=== PATIENT | female | born 1965 | race African-American/Black ===

== ENCOUNTER 2017-04-28 10:24 | Inpatient (IN) | payer MEDICARE, MEDICAID ==
[~2017-04-28] VITALS: Ht 156.2 cm; Wt 62.2 kg
[2017-04-28] MEDS ORDERED: SUCCINYLCHOLINE CHLORIDE 200MG/10ML VIAL IV ONE (10:30)
[2017-04-28] MEDS ORDERED: ETOMIDATE 2MG/ML 10ML VIAL IV ONE (10:30)
[2017-04-28] MEDS ORDERED: IPRATROPIUM BROMIDE (0.02%) 0.5MG/2.5ML NEB HHN STA (10:42)
[2017-04-28] MEDS ORDERED: METHYLPREDNISOLONE SOD SUCC 125 MG/2 ML VIAL IV STA (10:42)
[2017-04-28] MEDS: ALBUTEROL (0.083%) 2.5MG/3ML NEB HHN SCH ×3 (11:08→11:55)
[2017-04-28 11:20] LABS: HEMATOCRIT. 39.5 % (36.0-48.0); HEMOGLOBIN. 13.8 g/dL (12.0-16.0); MEAN CORPUSCULAR HEMOGLOBIN 33.5 pg (28.0-32.0); MEAN CORPUSCULAR VOLUME 96.2 fL (81.0-99.0); MEAN PLATELET VOLUME 8.1 fl (7.4-10.4); PLATELET 198 x1000/uL (130-400); RED BLOOD CELL COUNT 4.11 mill/uL (4.2-5.4); RED CELL DISTRIBUTION WIDTH 18.9 % (11.6-14.6)
[2017-04-28 11:27] LABS: INR 1.3; PROTHROMBIN TIME 13.2 sec (9.4-11.6)
[2017-04-28 11:35] LABS: CARBON DIOXIDE 23 mEq/L (21-32); CHLORIDE 97 mEq/L (98-107); TROPONIN I < 0.02 ng/mL (0.00-0.04)
[2017-04-28] MEDS ORDERED: KCL 10MEQ/50ML PREMIX 50 ML IV ONE ×2 (11:45→13:45)
[2017-04-28] MEDS ORDERED: POTASSIUM CHLORIDE 20MEQ/PACKET PO ONE (11:45)
[2017-04-28 11:50] LABS: PLATELET ESTIMATE NORMAL
[2017-04-28] MEDS ORDERED: MAGNESIUM 2 G PREMIX 50 ML IV ONE (12:00)
[2017-04-28 12:41] LABS: BG BASE EXCESS -3.6 mmol/L (-2.0-2.0); BG CARBOXYHEMOGLOBIN 0.9 % (0.5-1.5); BG DEOXYHEMOGLOBIN 0.2 % (0.0-5.0); BG FRACTION INSPIRED OXYGEN 100; BG HCO3 ACT 24.2 mmol/L (22.0-26.0); BG METHEMOGLOBIN 0.4 % (0.0-1.5); BG OXYGEN SATURATION 99.8 % (92.0-98.5); BG OXYHEMOGLOBIN 98.5 % (94.0-97.0); BG PCO2 54.6 mmHg (35.0-45.0); BG PH 7.264 (7.350-7.450); BG PO2 270.6 mmHg (75.0-100.0); BG SAMPLE SITE RIGHT RADIAL; BG TOTAL HEMOGLOBIN 14.3 g/dL (12.0-18.0); BG VENT MODE MASK - NRB
[2017-04-28] MEDS ORDERED: LORAZEPAM 2MG/ML CPJ IV ONE (12:45)
[2017-04-28] MEDS ORDERED: ONDANSETRON HCL 4MG/2ML VIAL IV PRN (13:30)
[2017-04-28] MEDS ORDERED: HYDROCODONE/ACETAMINOPHEN 5/325MG TABLET PO PRN (13:30)
[2017-04-28] MEDS ORDERED: ACETAMINOPHEN 325MG TABLET PO PRN (13:30)
[2017-04-28] MEDS ORDERED: DIPHENHYDRAMINE 50MG/ML VIAL IV PRN (13:30)
[2017-04-28] MEDS ORDERED: IPRATROPIUM/ALBUTEROL 0.5-3(2.5)MG/3ML NEB INH PRN (13:30)
[2017-04-28] MEDS ORDERED: IPRATROPIUM/ALBUTEROL 0.5-3(2.5)MG/3ML NEB INH SCH (13:30)
[2017-04-28] MEDS ORDERED: PROPOFOL 10MG/ML 100ML 100 ML IV ONE (15:03)
[2017-04-28] MEDS ORDERED: SODIUM CHLORIDE 0.9% 1000ML BAG (SEPSIS BOLUS) IV ONE (17:30)
[2017-04-28 17:34] LABS: BG CARBOXYHEMOGLOBIN 0.6 % (0.5-1.5); BG DEOXYHEMOGLOBIN 0.4 % (0.0-5.0); BG FRACTION INSPIRED OXYGEN 60; BG METHEMOGLOBIN 0.4 % (0.0-1.5); BG OXYGEN SATURATION 99.6 % (92.0-98.5); BG OXYHEMOGLOBIN 98.6 % (94.0-97.0); BG PCO2 40.4 mmHg (35.0-45.0); BG PH 7.374 (7.350-7.450); BG PO2 234.6 mmHg (75.0-100.0); BG SAMPLE SITE RIGHT RADIAL; BG TIDAL VOLUME(mL) 500 mL; BG TOTAL HEMOGLOBIN 14.5 g/dL (12.0-18.0); BG VENT MODE VENT - A/C; BG VENT RATE 14 set
[2017-04-28 19:06] LABS: CHLORIDE 99 mEq/L (98-107)
[2017-04-28 19:08] LABS: CARBON DIOXIDE 22 mEq/L (21-32)
[2017-04-28] MEDS: PROPOFOL 10MG/ML 100ML 100 ML IV SCH (21:03)
[2017-04-28 23:45] VITALS: BP 153/91
[2017-04-29] VITALS (52 sets, daily range): BP systolic 124–158; BP diastolic 63–103
[2017-04-29] MEDS ORDERED: PROPOFOL 10MG/ML 100ML 100 ML IV PRN (00:20)
[2017-04-29] MEDS ORDERED: PANTOPRAZOLE SODIUM 40 MG/VIAL IV SCH ×2 (00:20→11:45)
[2017-04-29] MEDS ORDERED: CEFTRIAXONE 1 G PREMIX 50 ML IV SCH ×2 (01:00→21:00)
[2017-04-29] MEDS: METHYLPREDNISOLONE SOD SUCC 40 MG/ML VIAL IV SCH ×4 (01:04→21:02)
[2017-04-29] MEDS: PROPOFOL 10MG/ML 100ML 100 ML IV SCH ×6 (01:19→21:05)
[2017-04-29 01:46] LABS: BG BASE EXCESS -0.9 mmol/L (-2.0-2.0); BG CARBOXYHEMOGLOBIN 0.5 % (0.5-1.5); BG DEOXYHEMOGLOBIN 2.5 % (0.0-5.0); BG FRACTION INSPIRED OXYGEN 40; BG HCO3 ACT 23.2 mmol/L (22.0-26.0); BG METHEMOGLOBIN 0.3 % (0.0-1.5); BG OXYGEN SATURATION 97.5 % (92.0-98.5); BG OXYHEMOGLOBIN 96.7 % (94.0-97.0); BG PCO2 36.7 mmHg (35.0-45.0); BG PH 7.418 (7.350-7.450); BG PO2 92.7 mmHg (75.0-100.0); BG SAMPLE SITE RIGHT RADIAL; BG TIDAL VOLUME(mL) 500 mL; BG TOTAL HEMOGLOBIN 13.1 g/dL (12.0-18.0); BG VENT MODE VENT - A/C; BG VENT RATE 14 set
[2017-04-29] MEDS ORDERED: AZITHROMYCIN 500 MG in DEXT 5% WATER 250 ML IV SCH ×2 (02:00→21:00)
[2017-04-29] MEDS: IPRATROPIUM/ALBUTEROL 0.5-3(2.5)MG/3ML NEB INH SCH ×5 (04:26→20:09)
[2017-04-29 07:16] LABS: HEMATOCRIT. 37.2 % (36.0-48.0); HEMOGLOBIN. 12.3 g/dL (12.0-16.0); MEAN CORPUSCULAR HEMOGLOBIN 32.7 pg (28.0-32.0); MEAN CORPUSCULAR VOLUME 98.5 fL (81.0-99.0); MEAN PLATELET VOLUME 8.4 fl (7.4-10.4); PLATELET 240 x1000/uL (130-400); RED BLOOD CELL COUNT 3.77 mill/uL (4.2-5.4); RED CELL DISTRIBUTION WIDTH 19.4 % (11.6-14.6)
[2017-04-29] MEDS: PANTOPRAZOLE SODIUM 40 MG/VIAL IV SCH (08:03)
[2017-04-29 08:04] LABS: CARBON DIOXIDE 23 mEq/L (21-32); CHLORIDE 105 mEq/L (98-107); HDL CHOLESTEROL 16 mg/dL (40-59); LDL CHOLESTEROL 74 mg/dL (5-100)
[2017-04-29] MEDS: ENOXAPARIN 40MG/0.4ML SYR SUBCUT SCH (08:04)
[2017-04-29] MEDS ORDERED: EPINEPHRINE 0.1MG/ML (1:10,000) 10ML SYR ONE (10:07)
[2017-04-29] MEDS ORDERED: SODIUM CHLORIDE 0.9% 10ML VIAL ONE (10:07)
[2017-04-29 10:37] LABS: PLATELET ESTIMATE NORMAL
[2017-04-29 10:39] LABS: BG BASE EXCESS 0.3 mmol/L (-2.0-2.0); BG CARBOXYHEMOGLOBIN 1.6 % (0.5-1.5); BG DEOXYHEMOGLOBIN 1.8 % (0.0-5.0); BG FRACTION INSPIRED OXYGEN 100; BG HCO3 ACT 25.2 mmol/L (22.0-26.0); BG METHEMOGLOBIN 0.2 % (0.0-1.5); BG OXYGEN SATURATION 98.2 % (92.0-98.5); BG OXYHEMOGLOBIN 96.4 % (94.0-97.0); BG PCO2 41.7 mmHg (35.0-45.0); BG PH 7.399 (7.350-7.450); BG PO2 116.3 mmHg (75.0-100.0); BG SAMPLE SITE RIGHT RADIAL; BG TIDAL VOLUME(mL) 500 mL; BG TOTAL HEMOGLOBIN 10.8 g/dL (12.0-18.0); BG VENT MODE VENT - A/C; BG VENT RATE 18 set
[2017-04-29] MEDS ORDERED: POTASSIUM CHLORIDE INJ 40 MEQ in DEXT 5% WATER 250 ML IV ONE (11:15)
[2017-04-29] MEDS: BUDESONIDE 0.5MG/2ML NEB HHN SCH ×2 (11:50→20:09)
[2017-04-29 12:40] LABS: CLARITY URINE CLEAR (CLEAR); COLOR URINE YELLOW (YELLOW); KETONES URINE 2+ (NEGATIVE); LEUKOCYTE ESTERASE URINE NEGATIVE (NEGATIVE); NITRITE URINE NEGATIVE (NEGATIVE); OCCULT BLOOD URINE 1+ (NEGATIVE); PROTEIN URINE TRACE (NEGATIVE); SPECIFIC GRAVITY URINE 1.013 (1.005-1.030)
[2017-04-29] MEDS ORDERED: DOCU-138 PO (12:40)
[2017-04-29] MEDS ORDERED: CLON0.1T PO (12:40)
[2017-04-29] MEDS ORDERED: FLUT16SP15 BOTHNSTRLS (12:40)
[2017-04-29] MEDS ORDERED: AMLO10TA80 PO (12:40)
[2017-04-29] MEDS ORDERED: CHOL100044 GT (12:40)
[2017-04-29] MEDS ORDERED: LORA10CA PO (12:40)
[2017-04-29] MEDS ORDERED: ALBU18HF2 IH (12:40)
[2017-04-29] MEDS ORDERED: CHOL100044 PO (12:40)
[2017-04-29 13:23] LABS: *AMPHETAMINES SCREEN URINE NEGATIVE (NEGATIVE); *BARBITURATES SCREEN URINE NEGATIVE (NEGATIVE); *BENZODIAZEPINES SCREEN URINE NEGATIVE (NEGATIVE); *COCAINE SCREEN URINE NEGATIVE (NEGATIVE); CANNABINOID URINE SCREEN NEGATIVE (NEGATIVE); METHADONE URINE SCREEN NEGATIVE (NEGATIVE); OPIATES URINE SCREEN NEGATIVE (NEGATIVE); PHENCYCLIDINE URINE SCREEN NEGATIVE (NEGATIVE)
[2017-04-29] MEDS ORDERED: POTASSIUM CHLORIDE INJ 40 MEQ in DEXT 5% WATER 250 ML IV NR ×2 (14:00→18:00)
[2017-04-30] VITALS (24 sets, daily range): BP systolic 124–162; BP diastolic 62–91
[2017-04-30] MEDS: IPRATROPIUM/ALBUTEROL 0.5-3(2.5)MG/3ML NEB INH SCH ×6 (00:07→20:39)
[2017-04-30] MEDS: METHYLPREDNISOLONE SOD SUCC 40 MG/ML VIAL IV SCH (05:00)
[2017-04-30 05:48] LABS: HEMATOCRIT. 36.8 % (36.0-48.0); HEMOGLOBIN. 12.2 g/dL (12.0-16.0); MEAN CORPUSCULAR HEMOGLOBIN 32.3 pg (28.0-32.0); MEAN CORPUSCULAR VOLUME 97.5 fL (81.0-99.0); MEAN PLATELET VOLUME 7.9 fl (7.4-10.4); PLATELET 313 x1000/uL (130-400); RED BLOOD CELL COUNT 3.77 mill/uL (4.2-5.4); RED CELL DISTRIBUTION WIDTH 19.4 % (11.6-14.6)
[2017-04-30 07:36] LABS: CARBON DIOXIDE 24 mEq/L (21-32); CHLORIDE 110 mEq/L (98-107); PHOSPHORUS 2.8 mg/dL (2.5-4.9)
[2017-04-30 08:25] LABS: BG BASE EXCESS 4.3 mmol/L (-2.0-2.0); BG CARBOXYHEMOGLOBIN 0.6 % (0.5-1.5); BG DEOXYHEMOGLOBIN 3.9 % (0.0-5.0); BG FRACTION INSPIRED OXYGEN 30; BG HCO3 ACT 27.9 mmol/L (22.0-26.0); BG METHEMOGLOBIN 0.2 % (0.0-1.5); BG OXYGEN SATURATION 96.1 % (92.0-98.5); BG OXYHEMOGLOBIN 95.3 % (94.0-97.0); BG PCO2 38.1 mmHg (35.0-45.0); BG PH 7.482 (7.350-7.450); BG PO2 75.3 mmHg (75.0-100.0); BG SAMPLE SITE RIGHT RADIAL; BG TIDAL VOLUME(mL) 500 mL; BG TOTAL HEMOGLOBIN 12.9 g/dL (12.0-18.0); BG VENT MODE VENT - A/C; BG VENT RATE 12 set
[2017-04-30] MEDS: PANTOPRAZOLE SODIUM 40 MG/VIAL IV SCH (08:56)
[2017-04-30] MEDS: ENOXAPARIN 40MG/0.4ML SYR SUBCUT SCH (08:56)
[2017-04-30] MEDS ORDERED: PROPOFOL 10MG/ML 100ML 100 ML IV SCH (09:28)
[2017-04-30] MEDS: BUDESONIDE 0.5MG/2ML NEB HHN SCH ×2 (09:29→20:39)
[2017-04-30] MEDS ORDERED: POTASSIUM CHLORIDE 20MEQ/PACKET PO NR (09:30)
[2017-04-30] MEDS ORDERED: VANCOMYCIN 1500MG in DEXTROSE 5% WATER 250ML IV NR (12:00)
[2017-04-30] MEDS: METHYLPREDNISOLONE SOD SUCC 125 MG/2 ML VIAL IV SCH ×2 (14:53→22:00)
[2017-04-30 17:07] LABS: PLATELET ESTIMATE NORMAL
[2017-05-01] VITALS (41 sets, daily range): BP systolic 111–163; BP diastolic 58–110
[2017-05-01] MEDS: IPRATROPIUM/ALBUTEROL 0.5-3(2.5)MG/3ML NEB INH SCH ×6 (00:07→20:19)
[2017-05-01] MEDS: VANCOMYCIN 1 G PREMIX 200 ML IV SCH ×3 (00:47→23:55)
[2017-05-01 06:03] LABS: HEMATOCRIT. 37.6 % (36.0-48.0); HEMOGLOBIN. 12.5 g/dL (12.0-16.0); MEAN CORPUSCULAR HEMOGLOBIN 32.5 pg (28.0-32.0); MEAN CORPUSCULAR VOLUME 97.5 fL (81.0-99.0); MEAN PLATELET VOLUME 7.9 fl (7.4-10.4); PLATELET 319 x1000/uL (130-400); RED BLOOD CELL COUNT 3.85 mill/uL (4.2-5.4); RED CELL DISTRIBUTION WIDTH 19.2 % (11.6-14.6)
[2017-05-01] MEDS: METHYLPREDNISOLONE SOD SUCC 125 MG/2 ML VIAL IV SCH ×3 (06:28→21:00)
[2017-05-01 07:24] LABS: CARBON DIOXIDE 29 mEq/L (21-32); CHLORIDE 107 mEq/L (98-107)
[2017-05-01 07:37] LABS: BG BASE EXCESS 4.4 mmol/L (-2.0-2.0); BG CARBOXYHEMOGLOBIN 0.7 % (0.5-1.5); BG HCO3 ACT 28.2 mmol/L (22.0-26.0); BG METHEMOGLOBIN 0.1 % (0.0-1.5); BG OXYHEMOGLOBIN 96.2 % (94.0-97.0); BG PCO2 39.5 mmHg (35.0-45.0); BG PH 7.472 (7.350-7.450); BG PO2 88.2 mmHg (75.0-100.0); BG SAMPLE SITE RIGHT BRACHIAL; BG TIDAL VOLUME(mL) 500 mL; BG TOTAL HEMOGLOBIN 13.2 g/dL (12.0-18.0); BG VENT MODE VENT - A/C; BG VENT RATE 12 set
[2017-05-01] MEDS: PANTOPRAZOLE SODIUM 40 MG/VIAL IV SCH (08:21)
[2017-05-01] MEDS: ENOXAPARIN 40MG/0.4ML SYR SUBCUT SCH (08:22)
[2017-05-01] MEDS: BUDESONIDE 0.5MG/2ML NEB HHN SCH ×2 (08:35→20:19)
[2017-05-01] MEDS ORDERED: POTASSIUM CHLORIDE 20MEQ/PACKET PO SCH (09:30)
[2017-05-01] MEDS ORDERED: LACTULOSE 20G/30ML UDC PO NR (10:15)
[2017-05-01] MEDS ORDERED: BISACODYL 10MG SUPP PR PRN (10:15)
[2017-05-01] MEDS: LORATADINE 10MG TABLET PO SCH (10:26)
[2017-05-01] MEDS: DOCUSATE SODIUM SUGAR FREE 100MG/10ML UDC NG SCH (10:26)
[2017-05-01] MEDS: MORPHINE SULFATE 2 MG/ML CPJ (NOT FOR IM USE) IV PRN ×2 (10:27→14:28)
[2017-05-01 13:48] LABS: PLATELET ESTIMATE NORMAL
[2017-05-01] MEDS: TERBUTALINE SULFATE 2.5MG TABLET PO SCH ×2 (14:27→21:00)
[2017-05-01] MEDS ORDERED: HYDROMORPHONE HCL/PF 2MG/ML CPJ IM PRN (15:15)
[2017-05-01] MEDS: HYDROMORPHONE HCL/PF 2MG/ML CPJ IV PRN ×2 (15:30→18:39)
[2017-05-01] MEDS: PROPOFOL 10MG/ML 100ML 100 ML IV PRN ×2 (18:00→23:56)
[2017-05-01] MEDS: FAMOTIDINE 20MG/2ML VIAL IV SCH (20:59)
[2017-05-02] VITALS (41 sets, daily range): BP systolic 132–178; BP diastolic 67–102
[2017-05-02] MEDS: IPRATROPIUM/ALBUTEROL 0.5-3(2.5)MG/3ML NEB INH SCH ×6 (00:27→20:18)
[2017-05-02] MEDS: METHYLPREDNISOLONE SOD SUCC 125 MG/2 ML VIAL IV SCH ×3 (05:49→21:23)
[2017-05-02] MEDS: BUDESONIDE 0.5MG/2ML NEB HHN SCH (07:22)
[2017-05-02] MEDS: HYDROMORPHONE HCL/PF 2MG/ML CPJ IV PRN ×5 (07:43→21:19)
[2017-05-02 08:27] LABS: BG BASE EXCESS 7.5 mmol/L (-2.0-2.0); BG CARBOXYHEMOGLOBIN 0.6 % (0.5-1.5); BG DEOXYHEMOGLOBIN 1.4 % (0.0-5.0); BG FRACTION INSPIRED OXYGEN 30; BG HCO3 ACT 32.5 mmol/L (22.0-26.0); BG METHEMOGLOBIN 0.2 % (0.0-1.5); BG OXYGEN SATURATION 98.6 % (92.0-98.5); BG OXYHEMOGLOBIN 97.8 % (94.0-97.0); BG PCO2 47.1 mmHg (35.0-45.0); BG PH 7.457 (7.350-7.450); BG PO2 116.6 mmHg (75.0-100.0); BG SAMPLE SITE RIGHT RADIAL; BG TIDAL VOLUME(mL) 500 mL; BG TOTAL HEMOGLOBIN 12.9 g/dL (12.0-18.0); BG VENT MODE VENT - A/C; BG VENT RATE 12 set
[2017-05-02] MEDS: FAMOTIDINE 20MG/2ML VIAL IV SCH ×2 (08:40→21:12)
[2017-05-02] MEDS: TERBUTALINE SULFATE 2.5MG TABLET PO SCH ×3 (08:40→19:43)
[2017-05-02] MEDS: LORATADINE 10MG TABLET PO SCH (08:40)
[2017-05-02] MEDS: DOCUSATE SODIUM SUGAR FREE 100MG/10ML UDC NG SCH (08:40)
[2017-05-02] MEDS: ENOXAPARIN 40MG/0.4ML SYR SUBCUT SCH (08:42)
[2017-05-02 09:13] LABS: HEMATOCRIT. 38.5 % (36.0-48.0); HEMOGLOBIN. 12.1 g/dL (12.0-16.0); MEAN CORPUSCULAR HEMOGLOBIN 31.3 pg (28.0-32.0); MEAN CORPUSCULAR VOLUME 99.3 fL (81.0-99.0); MEAN PLATELET VOLUME 8.1 fl (7.4-10.4); PLATELET 316 x1000/uL (130-400); RED BLOOD CELL COUNT 3.87 mill/uL (4.2-5.4); RED CELL DISTRIBUTION WIDTH 19.3 % (11.6-14.6)
[2017-05-02 09:34] LABS: CARBON DIOXIDE 29 mEq/L (21-32); CHLORIDE 107 mEq/L (98-107)
[2017-05-02 10:10] LABS: PLATELET ESTIMATE NORMAL
[2017-05-02 10:42] LABS: BG BASE EXCESS 0.8 mmol/L (-2.0-2.0); BG CARBOXYHEMOGLOBIN 0.5 % (0.5-1.5); BG DEOXYHEMOGLOBIN 2.3 % (0.0-5.0); BG FRACTION INSPIRED OXYGEN 30; BG HCO3 ACT 23.6 mmol/L (22.0-26.0); BG METHEMOGLOBIN 0.3 % (0.0-1.5); BG OXYGEN SATURATION 97.7 % (92.0-98.5); BG OXYHEMOGLOBIN 96.9 % (94.0-97.0); BG PCO2 32.2 mmHg (35.0-45.0); BG PH 7.483 (7.350-7.450); BG PRESSURE SUPPORT 8; BG SAMPLE SITE RIGHT BRACHIAL; BG TOTAL HEMOGLOBIN 13.4 g/dL (12.0-18.0); BG VENT MODE MASK - CPAP
[2017-05-02] MEDS ORDERED: VANCOMYCIN 1 G PREMIX 200 ML IV SCH ×2 (11:00→16:00)
[2017-05-02] MEDS ORDERED: POTASSIUM CHLORIDE INJ 40 MEQ in DEXT 5% WATER 250 ML IV NR (13:00)
[2017-05-02] MEDS ORDERED: POTASSIUM CHLORIDE INJ 40 MEQ in DEXT 5% WATER 500 ML IV NR (13:00)
[2017-05-02] MEDS: CEFAZOLIN 1000MG PREMIX 50 ML IV SCH ×2 (13:57→21:22)
[2017-05-02] MEDS ORDERED: METOCLOPRAMIDE HCL 10MG/2ML VIAL IV NR (14:45)
[2017-05-02 15:31] LABS: INR 1.3; PARTIAL THROMBOPLASTIN TIME 24.2 sec (23.4-31.0); PROTHROMBIN TIME 13.4 sec (9.4-11.6)
[2017-05-02] MEDS: CLONIDINE 0.1MG TABLET PO PRN (17:57)
[2017-05-03] VITALS (25 sets, daily range): BP systolic 122–170; BP diastolic 59–87
[2017-05-03] MEDS: IPRATROPIUM/ALBUTEROL 0.5-3(2.5)MG/3ML NEB INH SCH ×6 (00:05→21:21)
[2017-05-03] MEDS: METHYLPREDNISOLONE SOD SUCC 125 MG/2 ML VIAL IV SCH (05:46)
[2017-05-03] MEDS: CEFAZOLIN 1000MG PREMIX 50 ML IV SCH ×3 (05:46→22:02)
[2017-05-03 05:53] LABS: HEMATOCRIT. 37.4 % (36.0-48.0); HEMOGLOBIN. 12.1 g/dL (12.0-16.0); MEAN CORPUSCULAR HEMOGLOBIN 31.6 pg (28.0-32.0); MEAN CORPUSCULAR VOLUME 97.3 fL (81.0-99.0); MEAN PLATELET VOLUME 7.6 fl (7.4-10.4); PLATELET 305 x1000/uL (130-400); RED BLOOD CELL COUNT 3.84 mill/uL (4.2-5.4); RED CELL DISTRIBUTION WIDTH 18.9 % (11.6-14.6)
[2017-05-03 07:34] LABS: BG BASE EXCESS 7.4 mmol/L (-2.0-2.0); BG CARBOXYHEMOGLOBIN 0.7 % (0.5-1.5); BG DEOXYHEMOGLOBIN 3.3 % (0.0-5.0); BG HCO3 ACT 32.5 mmol/L (22.0-26.0); BG METHEMOGLOBIN 0.3 % (0.0-1.5); BG OXYGEN SATURATION 96.7 % (92.0-98.5); BG OXYHEMOGLOBIN 95.7 % (94.0-97.0); BG PCO2 47.4 mmHg (35.0-45.0); BG PH 7.454 (7.350-7.450); BG PO2 84.1 mmHg (75.0-100.0); BG SAMPLE SITE RIGHT BRACHIAL; BG TOTAL HEMOGLOBIN 13.3 g/dL (12.0-18.0); BG VENT MODE NASAL CANNULA
[2017-05-03 08:15] LABS: PLATELET ESTIMATE NORMAL
[2017-05-03] MEDS: DOCUSATE SODIUM SUGAR FREE 100MG/10ML UDC NG SCH (08:28)
[2017-05-03] MEDS: LORATADINE 10MG TABLET PO SCH (08:29)
[2017-05-03] MEDS: FAMOTIDINE 20MG/2ML VIAL IV SCH ×2 (08:29→21:29)
[2017-05-03] MEDS: TERBUTALINE SULFATE 2.5MG TABLET PO SCH ×3 (08:29→22:11)
[2017-05-03] MEDS: ENOXAPARIN 40MG/0.4ML SYR SUBCUT SCH (08:29)
[2017-05-03] MEDS: CLONIDINE 0.1MG TABLET PO PRN (09:12)
[2017-05-03 09:17] LABS: CHLORIDE 103 mEq/L (98-107)
[2017-05-03 09:31] LABS: CARBON DIOXIDE 31 mEq/L (21-32); PHOSPHORUS 3.5 mg/dL (2.5-4.9); VANCOMYCIN TROUGH 3.8 ug/mL (5.0-10.0)
[2017-05-03] MEDS: BUDESONIDE 0.5MG/2ML NEB HHN SCH ×2 (12:08→21:21)
[2017-05-03] MEDS: METHYLPREDNISOLONE SOD SUCC 40 MG/ML VIAL IV SCH (17:57)
[2017-05-03] MEDS: HYDROMORPHONE HCL/PF 2MG/ML CPJ IV PRN (21:31)
[2017-05-04] VITALS: BP 161/77
[2017-05-04 04:00] VITALS: BP 123/72
[2017-05-04] MEDS: CEFAZOLIN 1000MG PREMIX 50 ML IV SCH ×3 (05:55→21:15)
[2017-05-04 07:05] LABS: BASOPHILS % 0.1 % (0.0-2.0); HEMATOCRIT. 37.3 % (36.0-48.0); HEMOGLOBIN. 12.6 g/dL (12.0-16.0); LYMPHOCYTES % 7.1 % (20.0-50.0); MEAN CORPUSCULAR HEMOGLOBIN 33.1 pg (28.0-32.0); MEAN CORPUSCULAR VOLUME 97.8 fL (81.0-99.0); MEAN PLATELET VOLUME 7.7 fl (7.4-10.4); MONOCYTES % 5.7 % (2.0-8.0); NEUTROPHILS % 87.1 % (40.0-76.0); PLATELET 286 x1000/uL (130-400); RED BLOOD CELL COUNT 3.81 mill/uL (4.2-5.4); RED CELL DISTRIBUTION WIDTH 18.5 % (11.6-14.6)
[2017-05-04] MEDS: BUDESONIDE 0.5MG/2ML NEB HHN SCH ×2 (07:15→19:40)
[2017-05-04] MEDS: IPRATROPIUM/ALBUTEROL 0.5-3(2.5)MG/3ML NEB INH SCH ×4 (07:16→19:40)
[2017-05-04 07:20] LABS: CHLORIDE 99 mEq/L (98-107)
[2017-05-04 07:33] LABS: CARBON DIOXIDE 30 mEq/L (21-32)
[2017-05-04 08:00] VITALS: BP 140/69
[2017-05-04] MEDS: TERBUTALINE SULFATE 2.5MG TABLET PO SCH ×3 (08:00→19:54)
[2017-05-04] MEDS: FAMOTIDINE 20MG/2ML VIAL IV SCH ×2 (08:36→20:01)
[2017-05-04] MEDS: LORATADINE 10MG TABLET PO SCH (08:36)
[2017-05-04] MEDS: METHYLPREDNISOLONE SOD SUCC 40 MG/ML VIAL IV SCH (09:03)
[2017-05-04] MEDS: ENOXAPARIN 40MG/0.4ML SYR SUBCUT SCH (09:03)
[2017-05-04] MEDS: DOCUSATE SODIUM SUGAR FREE 100MG/10ML UDC NG SCH (09:03)
[2017-05-04 12:00] VITALS: BP 153/66
[2017-05-04] MEDS: HYDROMORPHONE HCL/PF 2MG/ML CPJ IV PRN ×2 (13:30→19:56)
[2017-05-04 16:00] VITALS: BP 156/77
[2017-05-04 20:00] VITALS: BP 143/68
[2017-05-05] VITALS: BP 165/76
[2017-05-05] MEDS: IPRATROPIUM/ALBUTEROL 0.5-3(2.5)MG/3ML NEB INH SCH ×4 (00:07→12:53)
[2017-05-05] MEDS: HYDROMORPHONE HCL/PF 2MG/ML CPJ IV PRN ×2 (00:39→08:52)
[2017-05-05 04:00] VITALS: BP 151/72
[2017-05-05] MEDS: CEFAZOLIN 1000MG PREMIX 50 ML IV SCH ×2 (06:03→15:04)
[2017-05-05 07:33] LABS: BASOPHILS % 0.2 % (0.0-2.0); EOSINOPHILS % 0.3 % (0.0-5.0); HEMATOCRIT. 37.1 % (36.0-48.0); HEMOGLOBIN. 12.1 g/dL (12.0-16.0); LYMPHOCYTES % 12.7 % (20.0-50.0); MEAN CORPUSCULAR HEMOGLOBIN 32.1 pg (28.0-32.0); MEAN CORPUSCULAR VOLUME 98.6 fL (81.0-99.0); MEAN PLATELET VOLUME 7.7 fl (7.4-10.4); MONOCYTES % 6.6 % (2.0-8.0); NEUTROPHILS % 80.2 % (40.0-76.0); PLATELET 284 x1000/uL (130-400); RED BLOOD CELL COUNT 3.76 mill/uL (4.2-5.4); RED CELL DISTRIBUTION WIDTH 18.6 % (11.6-14.6)
[2017-05-05 08:00] VITALS: BP 152/76
[2017-05-05] MEDS ORDERED: PREDNISONE 20MG TABLET PO SCH (08:10)
[2017-05-05 08:11] LABS: CARBON DIOXIDE 30 mEq/L (21-32); CHLORIDE 98 mEq/L (98-107)
[2017-05-05] MEDS: FAMOTIDINE 20MG/2ML VIAL IV SCH (08:51)
[2017-05-05] MEDS: TERBUTALINE SULFATE 2.5MG TABLET PO SCH ×2 (08:51→15:04)
[2017-05-05] MEDS: ENOXAPARIN 40MG/0.4ML SYR SUBCUT SCH (08:51)
[2017-05-05] MEDS: LORATADINE 10MG TABLET PO SCH (08:51)
[2017-05-05] MEDS: DOCUSATE SODIUM SUGAR FREE 100MG/10ML UDC NG SCH (09:05)
[2017-05-05] MEDS: BUDESONIDE 0.5MG/2ML NEB HHN SCH (09:52)
[2017-05-05] MEDS ORDERED: POTASSIUM CHLORIDE 20MEQ TABLET SR PO SCH (11:15)
[2017-05-05 12:00] VITALS: BP 154/72
[2017-05-05 13:00] VITALS: BP 154/72
[2017-05-05 16:00] VITALS: BP 165/73
== END 2017-05-05 16:15 | disposition home or self-care (01) | DRG 871 ==
LOC: ER 10:24 → CVICU 12:10 → EDBEDREQSVC 15:45 → ENRESERV 23:04 → 7WST 05-03 15:43
PROVIDERS: ADMIT Internal Medicine; ATTEND Internal Medicine
PROC: 5A1945Z Respiratory Ventilation, 24-96 Consecutive Hours (ICD-10-PCS; principal; 2017-04-28)
PROC: 0BH17EZ Insertion of Endotracheal Airway into Trachea, Via Natural or Artificial Opening (ICD-10-PCS; 2017-04-28)
PROC: 06HM33Z Insertion of Infusion Device into Right Femoral Vein, Percutaneous Approach (ICD-10-PCS; 2017-04-28)
DX: A41.9 Sepsis, unspecified organism (principal); J96.01 Acute respiratory failure with hypoxia; J44.0 Chronic obstructive pulmonary disease with (acute) lower respiratory infection; J96.02 Acute respiratory failure with hypercapnia; J15.212 Pneumonia due to Methicillin resistant Staphylococcus aureus; J45.901 Unspecified asthma with (acute) exacerbation; I24.9 Acute ischemic heart disease, unspecified; E87.6 Hypokalemia; I10 Essential (primary) hypertension; K59.00 Constipation, unspecified; R73.9 Hyperglycemia, unspecified; E66.9 Obesity, unspecified; Z72.89 Other problems related to lifestyle; Z68.25 Body mass index [BMI] 25.0-25.9, adult
CPT/HCPCS: 31500; 36415; 36556; 36600; 71010; 71250; 74000; 76700; 80048; 80053; 80061; 80202; 80305; 81001; 82375; 82805; 83036; 83605; 83735; 83880; 84100; 84145; 84478; 84484; 85025; 85610; 85730; 87040; 87070; 87086; 87186; 92610; 93005; 93306; 93970; 94002; 94003; 94640; 96365; 96375; 97116; 97163; 97166; 97535; 99285; A4216; A6261; C1893; C9113; J0171; J0330; J0456; J0690; J0696; J1170; J1200; J1650; J2060; J2270; J2405; J2704; J2765; J2920; J2930; J3370; J3475; J3480; J3490; J7030; J7040; J7060; J7512; J7611; J7620; J7626

== ENCOUNTER 2021-11-25 05:28 | Emergency (ER) | payer MEDICARE, MEDICAID ==
[~2021-11-25] VITALS: Ht 149.9 cm; Wt 73.8 kg
[~2021-11-25 05:28] MED LIST: ALBU18HF2 IH; AMLO10TA80 PO; CHOL100044 GT; CHOL100044 PO; CLON0.1T PO; DOCU-138 PO; FLUT16SP15 BOTHNSTRLS; LORA10CA PO
[2021-11-25] MEDS ORDERED: VISCOUS LIDOCAINE 2% 15 ML UDC MM STA (06:38)
[2021-11-25] MEDS ORDERED: FAMOTIDINE 20MG/2ML VIAL IV STA (06:38)
[2021-11-25] MEDS ORDERED: ONDANSETRON HCL 4MG/2ML INJ IV STA (06:38)
[2021-11-25] MEDS ORDERED: MORPHINE SULFATE 4 MG/ML CPJ (NOT FOR IM USE) IV STA (06:38)
[2021-11-25] MEDS ORDERED: MAGNESIUM/ALUMINUM HYDROXIDE/SIMETHICONE 30ML UDC PO STA (06:38)
[2021-11-25 07:39] LABS: BASOPHILS % 0.4 % (0.0-2.0); EOSINOPHILS % 0.1 % (0.0-5.0); HEMATOCRIT. 51.7 % (36.0-48.0); HEMOGLOBIN. 16.9 g/dL (12.0-16.0); LYMPHOCYTES % 14.9 % (20.0-50.0); MEAN CORPUSCULAR HEMOGLOBIN 29.2 pg (28.0-32.0); MEAN CORPUSCULAR VOLUME 89.6 fL (81.0-99.0); NEUTROPHILS % 78.6 % (40.0-76.0); PLATELET 232 x1000/uL (130-400); RED BLOOD CELL COUNT 5.77 mill/uL (4.2-5.4)
[2021-11-25 07:59] LABS: CHLORIDE 104 mEq/L (98-107)
[2021-11-25] MEDS ORDERED: MORPHINE SULFATE 4 MG/ML CPJ (NOT FOR IM USE) IV ONE (09:15)
[2021-11-25 10:31] LABS: INR 1.1; PROTHROMBIN TIME 11.6 sec (9.6-11.0)
[2021-11-25] MEDS ORDERED: LACT1CAP78 MT (11:09)
[2021-11-25] MEDS ORDERED: FAMO40TA70 MT (11:09)
[2021-11-25] MEDS ORDERED: TOPUD PO (11:09)
[2021-11-25 12:00] VITALS: BP 158/77
== END 2021-11-25 12:20 | disposition home or self-care (01) ==
LOC: ER 05:28
DX: K52.9 Noninfective gastroenteritis and colitis, unspecified (principal); K21.9 Gastro-esophageal reflux disease without esophagitis; I10 Essential (primary) hypertension; Z79.899 Other long term (current) drug therapy
CPT/HCPCS: 36415; 74176; 80053; 83690; 85025; 85610; 96374; 96375; 96376; 99285; J2270; J2405; J3490